=== PATIENT | female | born 1960 | race Two or more races ===

== ENCOUNTER → 2021-07-08 | Outpatient (CLI) | payer OTHER | END | disposition home or self-care (01) | LOC: RAD 14:29 | PROVIDERS: ATTEND Orthopaedic Surgery | DX: M25.571 Pain in right ankle and joints of right foot (principal) ==

== ENCOUNTER 2025-04-28 12:12 | Emergency (ER) | payer OTHER ==
[~2025-04-28] VITALS: Ht 162.6 cm; Wt 72.6 kg
[2025-04-28] MEDS ORDERED: LEVOTHYROXINE25 MCG PO (12:38)
[2025-04-28] MEDS ORDERED: KETOROLAC TROMETHAMINE 30 MG VIAL IM STA (15:04)
[2025-04-28] MEDS ORDERED: KETOROLAC TROMETHAMINE 30 MG VIAL ONE (15:06)
== END 2025-04-28 15:56 | disposition home or self-care (01) ==
LOC: ER 12:12
DX: S09.8XXA Other specified injuries of head, initial encounter (principal); W18.39XA Other fall on same level, initial encounter; Y93.89 Activity, other specified; Y92.89 Other specified places as the place of occurrence of the external cause; S39.82XA Other specified injuries of lower back, initial encounter
CPT/HCPCS: 70450; 70490; 72100; 96372; 99284; J1885